=== PATIENT | male | born 1990 | race Caucasian/White ===

== ENCOUNTER 2017-09-13 02:31 | Emergency (ER) | payer OTHER ==
[2017-09-13 02:44] VITALS: BP 135/70; PULSE 79; RESP 16; TEMP 98.6; O2SAT 100
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
== END 2017-09-13 02:59 | disposition home or self-care (01) ==
LOC: H.ER 02:31
DX: S01.312A Laceration without foreign body of left ear, initial encounter (principal); Y04.0XXA Assault by unarmed brawl or fight, initial encounter; Y92.89 Other specified places as the place of occurrence of the external cause